=== PATIENT | female | born 1985 ===

== ENCOUNTER 2016-12-03 23:12 | Emergency (ER) | payer MEDICAID ==
--- NOTE | 2016-12-04 09:36 | OBHP ---
Datetime: 12/04/2016 00:10 IP Adm Impression: Term, intrauterine IP Admit Plan: Discharge home Admit Comment, IP Provider: CHIEF COMPLAINT: CTX HPI: 31 yo at 38.6 wks GA with EDC by lmp +: CTX, FM - ROM, VB last U/S: 11/24/2016 last visit12/02/2016 Pt shares that at 10:00 AM she started experiencing contractions. Contractions have been every 20 minutes with 2 minute duration. PAST OB HX: 2003 @ 40 week, M; 2006 @ 40 week, F; 2009 @ 40 week, F PAST [employer] HX: STD negative, PAP unknown PMHX: none PAST SX HX: none SOCIAL HX: denies: smoking, alcohol, illicit drugs MEDICATION: PNV ALLERGIES: NKDA VITALS: 113/76 69 PE: General: pleasant, in no acute distress HEENT: normocephalic, PERRLA; AAOx3 Resp: 14 breaths; non labored Abdomen: gravid CVA: negative LOWER EXTREMITIES: negative for edema SSE/PELVIC EXN: no vaginal bleed or pooling of amniotic fluid MONITOR (normal) Variablity: moderate: 6-25 bpm ACC: 15x15 DECC: none FHR: 130 ASSESSMENT: 31 yo IUP at 38.6 wks with h/o x3 full term Cervix is closed and long; no vaginal bleed; no pooling amniotic fluid; good movement with f avorable heart tracings. PLAN: False labor; disharge home to f/u with OBGYN: next appt on 12/09/2016. Pt instructe d to return when her contractions are every 5-6 minutes, vaginal bleed, ROM, decreased movement s; trauma. SONA PGY1 Addendum: I saw exam patient presentation. Agree with above. No evidence of labor at this time. Both materna l being and well-being reassuring at this time. Patient discharged home with labor precautions. [place] Pelvic Type - PN: Adequate Extremities - PN: Normal Abdomen - PN: Normal Back - PN: Not Done Breast - PN: Not Done Lungs - PN: Normal Heart - PN: Not Done Thyroid - PN: Not Done Neurologic - PN: Normal HEENT - PN: Normal General - PN: Normal FHR - Baseline A Provider: 130 EGA AdmitDate IP: 38.0 Vital Signs Provider: Reviewed; Within Normal Limits IP Chief Complaint: Uterine contractions NICHD Variability Prov Fetus A: Moderate 6-25bpm NICHD Accel Fetus A IP Provider: 15X15 FHR Category Provider Fetus A: Category I NICHD Decel Fetus A IP Provider: None Dilatation, Provider: 0 Genitourinary Exam: Normal DTRs - PN: Not Done
[2016-12-06 11:53] VITALS: BP 113/76; PULSE 69; RESP 15; TEMP 98.7
== END 2016-12-04 00:10 | disposition home or self-care (01) ==
LOC: H.EROB2 23:12 → H.EROB 23:12 → H.EROB2 12-04 00:10
DX: O47.1 False labor at or after 37 completed weeks of gestation (principal); Z3A.38 38 weeks gestation of pregnancy

== ENCOUNTER 2016-12-08 16:01 | Emergency (ER) | payer MEDICAID ==
--- NOTE | 2016-12-08 20:32 | OBHP ---
Datetime: 12/08/2016 16:53 IP Adm Impression: Term, intrauterine IP Chief Complaint Other: blood tinged discharge IP Admit Plan: Observation/Evaluation; Discharge home Admit Comment, IP Provider: CHIEF COMPLAINT: ctx every 30 min HPI: 31 yo at 38.5 wks GA with GREG by lmp, states feeling soom CTX every 30 mins which starte d yesterday around midnight. Associated with blood tinged mucous per patient. + FM, - LOF, - VB. Reports no problems during PNC except h/o UTI. Currently states taking prophylactic abx x 1 month, no record found in chart. Patient has an appt scheduled tomorrow at [place]. PNC: [facility], next visit 12/09; last U/S: 11/24/2016, chart reviewed PAST OB HX: 2003 @ 40 week, M; 2006 @ 40 week, F; 2009 @ 40 week, F PAST [employer] HX: STD negative, PAP unknown PMHX: none PAST SX HX: none SOCIAL HX: denies: smoking, alcohol, illicit drugs MEDICATION: PNV ALLERGIES: NKDA O: cervix closed, thick, -3 station, scant blood tinged discharged noted on speculum exam. No pooling of fluid. A/P IUP at 38.5 wks Cervix is closed and long; no vaginal bleed; no pooling amniotic fluid; cat 1 tracing Patient stable to DC after NST d/w Dr. Goran Sun MD OBH addendum: Patient seen and examined me with Dr. Sun. Agree with above assessment and plan. Impression: False labor plan Plan: Labor precautions kick counts. Pelvic Type - PN: Adequate Extremities - PN: Normal Abdomen - PN: Normal Back - PN: Normal Breast - PN: Not Done Lungs - PN: Normal Heart - PN: Normal Thyroid - PN: Normal Neurologic - PN: Normal HEENT - PN: Normal General - PN: Normal FHR - Baseline A Provider: 130 Comments, ACOG Physical Exam: cervix closed, thick, -3 station, scant blood tinged discharged noted on speculum exam. No pooling of fluid. Gestation - Est Wks by US: 38.5 Vital Signs Provider: Reviewed NICHD Variability Prov Fetus A: Moderate 6-25bpm NICHD Accel Fetus A IP Provider: 15X15 FHR Category Provider Fetus A: Category I NICHD Decel Fetus A IP Provider: None Dilatation, Provider: closed Effacement, Provider: thick Station, Provider: -3 Genitourinary Exam: Normal DTRs - PN: Not Done Datetime: 12/04/2016 00:10 EGA AdmitDate IP: 38.2
[2016-12-08 22:46] VITALS: BP 105/70; PULSE 68; RESP 18; TEMP 98; O2SAT 97
== END 2016-12-08 17:48 | disposition home or self-care (01) ==
LOC: H.EROB2 16:01
DX: O47.1 False labor at or after 37 completed weeks of gestation (principal); Z3A.38 38 weeks gestation of pregnancy

== ENCOUNTER 2016-12-10 04:05 | Emergency (ER) | payer MEDICAID ==
[2016-12-10 12:31] VITALS: BP 106/64; PULSE 67
--- NOTE | 2016-12-10 12:56 | OBHP ---
Datetime: 12/10/2016 07:15 IP Adm Impression: Term, intrauterine ; No Active Labor IP Admit Plan: Observation/Evaluation Admit Comment, IP Provider: Examined pt at bedside: Cervix is 1 cm, long; vitals are stable; FTR is 130 moderate variability, 15x15 accelerations Category1; no decelerations. d/w Dr. Valente MAGALLANES PGY1 Datetime: 12/10/2016 05:02 Pelvic Type - PN: Adequate Extremities - PN: Normal Abdomen - PN: Normal Back - PN: Normal Breast - PN: Normal Lungs - PN: Normal Heart - PN: Normal Thyroid - PN: Normal Neurologic - PN: Normal HEENT - PN: Normal General - PN: Normal FHR - Baseline A Provider: 130 EGA AdmitDate IP: 39.1 Vital Signs Provider: Reviewed IP Chief Complaint: Uterine contractions NICHD Variability Prov Fetus A: Moderate 6-25bpm NICHD Accel Fetus A IP Provider: 15X15 FHR Category Provider Fetus A: Category I NICHD Decel Fetus A IP Provider: None Dilatation, Provider: 1 Effacement, Provider: 0 Station, Provider: -3 Genitourinary Exam: Normal DTRs - PN: Normal
== END 2016-12-10 07:55 | disposition home or self-care (01) ==
LOC: H.EROB2 04:05
DX: O47.1 False labor at or after 37 completed weeks of gestation (principal); Z3A.39 39 weeks gestation of pregnancy